=== PATIENT | female | born 1955 | race Caucasian/White ===

== ENCOUNTER → 2018-12-05 12:26 | Day surgery (SDC) | payer OTHER ==
[~2018-12-05 12:26] MED LIST: Acetaminophen TAB* 325 MG PO PRN; Buffered Lidocaine 1% SYRIN* 1 ML/SYRINGE INTRADERM ONE; Ketorolac INJ* 30 MG/ML 1 ML VIAL IV PRN; Lactated Ringers 1000 ML Bag* 1,000 ML IV SCH; Lidocaine 2% PF * 5 ML VIAL ONE; Midazolam* 1 MG/ML 2 ML VIAL (2 MG) ONE; Naloxone* 0.4 MG/ML 1 ML VIAL IV PRN; Ondansetron INJ* 2 MG/ML VIAL IV PRN; Propofol* 10 MG/ML 20 ML BTL ONE; Propofol* 500 MG/50 ML BTL ONE
[2018-12-05 16:05] VITALS: BP 116/55
--- NOTE | 2018-12-05 20:18 | OP ---
CC: Dr. Ronaldo Hernandez * DATE OF OPERATION: 12/05/18 - [facility] DATE OF : 55 ATTENDING SURGEON: Alvarez Rowe MD PRE-OP DIAGNOSIS: History of blood per rectum. POST-OP DIAGNOSIS: Normal EGD, hemorrhoids noted on colonoscopy. OPERATIVE PROCEDURES: EGD with biopsy, colonoscopy. INDICATIONS FOR PROCEDURE: History of blood per rectum. Risks included, but not limited to bleeding and perforation explained to the patient. DESCRIPTION OF PROCEDURE: In the endoscopy suite in the left lateral decubitus position, a bite block was placed in the mouth, sedation was given by the anesthesiologist. The video gastroscope was inserted and advanced under direct visualization to the duodenum and duodenal bulb. Antral body and fundus of the stomach appeared normal. A CLOtest was performed with biopsy. The esophagus appeared normal throughout. The Z-line was at approximately 40 cm to teeth. She was then prepared for colonoscopy. Digital rectal examination revealed no masses. The video colonoscope was inserted into the rectum and advanced under direct visualization to the cecum, identified by the ileocecal valve. The scope was retracted along the length of the colon, the prep was fair, poor in some areas. Scope was retroflexed in the rectum. Some internal hemorrhoids were noted. She tolerated the procedure well. [id number]/[facility] #: [id number] [facility]
== END | disposition home or self-care (01) ==
LOC: OR 12:26
PROVIDERS: ATTEND Surgery
DX: K62.5 Hemorrhage of anus and rectum (principal); K64.8 Other hemorrhoids; I25.10 Atherosclerotic heart disease of native coronary artery without angina pectoris; I25.2 Old myocardial infarction; I10 Essential (primary) hypertension; G47.33 Obstructive sleep apnea (adult) (pediatric); E03.9 Hypothyroidism, unspecified; F41.8 Other specified anxiety disorders
CPT/HCPCS: 87077; J2250; J2704